=== PATIENT | female | born 1955 | race African-American/Black ===

== ENCOUNTER → 2020-07-05 | Outpatient (CLI) | payer OTHER ==
[~2020-07-05] MED LIST: ASPI81TA40 PO; BENZ1TAB10 PO; DILT60 PO; DIPH50 PO; DSS100 PO; FERR-89 PO; GLIP5 PO; INSLAN SQ; LISI-661 PO; LORA-999 PO; OMEP20 PO; PALI234D IM; SIMV-260 PO; TRAZ150 PO
== END | disposition home or self-care (01) ==
LOC: RADMN 09:30
PROVIDERS: ATTEND Psychiatry & Neurology Neurology
DX: M51.36 Other intervertebral disc degeneration, lumbar region (principal); M48.061 Spinal stenosis, lumbar region without neurogenic claudication
CPT/HCPCS: 72148

== ENCOUNTER 2021-12-01 18:08 | Inpatient (IN) | payer MEDICARE, OTHER ==
[~2021-12-01] VITALS: Ht 175.3 cm; Wt 105.0 kg
[~2021-12-01 18:08] MED LIST changes: -BENZ1TAB10 PO; +BENZ1TAB96 PO; -DILT60 PO; +DILT60TA4 PO; -LISI-661 PO; +LISI-893 PO; -TRAZ150 PO; +TRAZ150T80 PO
[2021-12-01] MEDS ORDERED: SODIUM CHLORIDE 0.9% 100 ML ONE (18:51)
[2021-12-01] MEDS ORDERED: IOHEXOL 350 MG/ML 100 ML VIAL ONE (18:52)
[2021-12-01 19:21] LABS: BASOPHILS % (AUTO) 1.1 % (0.0-2.0); EOSINOPHILS % (AUTO) 1.2 % (1.0-6.0); HEMATOCRIT 41.8 % (36-46); HEMOGLOBIN 13.6 g/dL (12.0-16.0); LYMPHOCYTES % (AUTO) 39.1 % (22.0-44.0); MEAN CORPUSCULAR HGB CONC 32.6 G/dL (31.0-37.0); MEAN CORPUSCULAR VOLUME 89 fL (80-100); MONOCYTES # (AUTO) 0.5 K/uL (0.1-1.0); MONOCYTES % (AUTO) 5.3 % (2.0-9.0); NEUTROPHILS # (AUTO) 5.4 K/uL (1.8-7.7); NEUTROPHILS % (AUTO) 53.3 % (40.0-70.0); PLATELET COUNT (AUTO) 156 K/uL (150-450); RED BLOOD CELL COUNT(AUTO) 4.71 MIL/uL (4.00-5.20); RED CELL DISTRIBUTION WIDTH 13.8 % (11.5-14.5)
[2021-12-01 19:24] LABS: CALCIUM, TOTAL 8.6 mg/dL (8.8-10.5); CREATININE 2.51 mg/dL (0.60-1.30); POTASSIUM 4.6 mmol/L (3.5-5.1)
[2021-12-01 19:29] LABS: ALBUMIN 3.2 g/dL (3.4-5.0); BILIRUBIN,TOTAL 0.3 mg/dL (0.1-1.0); TOTAL PROTEIN, SERUM 7.8 g/dL (6.4-8.2)
[2021-12-01] MEDS ORDERED: ACETAMINOPHEN 1000 MG/ISO-OSM 100 ML IV ONE (19:30)
[2021-12-01] MEDS ORDERED: NiCARDipine HCL 25 MG in DEXTROSE 5%-WATER 240 ML IV PRN (19:30)
[2021-12-01 20:16] LABS: COVID AG,FIA SOURCE NASAL SWAB
[2021-12-01 20:30] LABS: APPEARANCE,URINE CLEAR (CLEAR); BILIRUBIN,URINE NEGATIVE (NEGATIVE); GLUCOSE, URINE (UA) NEGATIVE (NEGATIVE); KETONES,URINE NEGATIVE (NEGATIVE); LEUKOCYTE ESTERASE ,URINE NEGATIVE (NEGATIVE); NITRATE,URINE NEGATIVE (NEGATIVE); OCCULT BLOOD,URINE SMALL (NEGATIVE); PROTEIN,URINE 300-600,SEE CONFIRM mg/dL (NEGATIVE); SPECIFIC GRAVITIY, URINE 1.019 (1.003-1.030); UROBILINOGEN,URINE <=1.0 mg/dL (<=1.0)
[2021-12-01 20:34] LABS: AMPHET/METH SCREEN,URINE NEGATIVE (NEGATIVE); BARBITURATE SCREEN, URINE NEGATIVE (NEGATIVE); BENZODIAZEPINES SCREEN,URINE NEGATIVE (NEGATIVE); CANNABINOID SCREEN,URINE NEGATIVE (NEGATIVE); COCAINE SCREEN,URINE NEGATIVE (NEGATIVE); METHADONE SCREEN, URINE NEGATIVE (NEGATIVE); OPIATE SCREEN,URINE POSITIVE (NEGATIVE)
[2021-12-01 20:35] LABS: PHENCYCLIDINE SCREEN,URINE NEGATIVE (NEGATIVE)
[2021-12-01 20:50] LABS: INFLUENZA TYPE A NEGATIVE FOR TYPE A (NEGATIVE); INFLUENZA TYPE B NEGATIVE FOR TYPE B (NEGATIVE)
[2021-12-01] MEDS ORDERED: VANCOMYCIN 1GM/WATER(PEG/NADA) 200 ML IV ONE (21:45)
[2021-12-01] MEDS ORDERED: CefTRIAXone SODIUM 2 GM in DEXTROSE 5%-WATER 50 ML IV ONE (22:00)
[2021-12-01] MEDS ORDERED: DEXTROSE 50%-WATER 25 GM/50 ML SYRINGE IVP PRN (22:15)
[2021-12-01] MEDS ORDERED: NiCARDipine HCL 25 MG in SODIUM CHLORIDE 0.9% 240 ML IV PRN (22:15)
[2021-12-01] MEDS ORDERED: *CLINICAL-CEFEPIME DOSING CLINICAL ONE (22:15)
[2021-12-01 22:33] LABS: BACTERIA,URINE None Seen /HPF (None Seen); RBC,URINE 0-2 /HPF (0-2); SQUAMOUS EPITHELIAL CELL,UR Rare /LPF (None Seen); WBC,URINE None Seen /HPF (0-5); YEAST,URINE None Seen /HPF (None Seen)
[2021-12-01 22:34] LABS: MUCUS,URINE Rare LPF (None Seen)
[2021-12-01] MEDS ORDERED: NALOXONE HCL 10 MG in DEXTROSE 5%-WATER 240 ML IV PRN (22:45)
[2021-12-01] MEDS ORDERED: SODIUM CHLORIDE 0.9% 1,500 ML IV ONE (22:45)
[2021-12-01] MEDS ORDERED: VANCOMYCIN HCL 1 GM in DEXTROSE 5%-WATER 250 ML IV PRN (22:45)
[2021-12-01 23:15] LABS: SULFOSALICYLIC ACID,URINE 4+ (Negative)
[2021-12-02 00:10] LABS: CREATININE 2.6 mg/dL (0.60-1.30); POTASSIUM 5.3 mmol/L (3.5-5.1)
[2021-12-02] MEDS: SODIUM CHLORIDE 0.9% 1,000 ML IV SCH ×2 (00:39→15:00)
[2021-12-02] MEDS ORDERED: VANCOMYCIN 1GM/WATER(PEG/NADA) 200 ML IV ONE (02:00)
[2021-12-02 08:00] VITALS: BP 136/91
[2021-12-02] MEDS ORDERED: HALOPERIDOL LACTATE 5 MG/ML VIAL IM ONE ×2 (08:30→11:30)
[2021-12-02] MEDS ORDERED: ASPIRIN 81 MG DR TABLET PO SCH (09:00)
[2021-12-02] MEDS ORDERED: CEFEPIME HCL 1 GM in DEXTROSE 5%-WATER 50 ML IV SCH (09:00)
[2021-12-02] MEDS ORDERED: PALIPERIDONE PALMITATE 234 MG/1.5 ML SYRINGE IM SCH (09:00)
[2021-12-02] MEDS: ETHYL ALCOHOL 62% ANTISEPTIC NASAL INHALANT 0.6 ML AMPUL NASAL SCH ×2 (09:12→21:17)
[2021-12-02] MEDS: LORazepam 0.5 MG TABLET PO SCH ×2 (09:12→21:16)
[2021-12-02] MEDS: CEFEPIME HCL 0.5 GM in DEXTROSE 5%-WATER 50 ML IV SCH (09:12)
[2021-12-02] MEDS: DOCUSATE SODIUM 100 MG CAPSULE PO SCH (09:13)
[2021-12-02] MEDS: OMEPRAZOLE 20 MG CAPSULE PO SCH (09:13)
[2021-12-02] MEDS: BENZTROPINE MESYLATE 1 MG TABLET PO SCH ×2 (09:13→21:17)
[2021-12-02] MEDS: DILTIAZEM HCL 60 MG TABLET PO SCH ×2 (09:14→21:17)
[2021-12-02] MEDS ORDERED: DiphenhydrAMINE HCL 50 MG/ML VIAL IM ONE (11:30)
[2021-12-02] MEDS ORDERED: LORazepam 2 MG/ML VIAL IM ONE (11:30)
[2021-12-02] MEDS: FERROUS SULFATE 325 MG EC TABLET PO SCH ×3 (11:43→21:19)
[2021-12-02 12:00] VITALS: BP 154/132
[2021-12-02] MEDS ORDERED: DOCU-350 PO (13:14)
[2021-12-02] MEDS ORDERED: MORP15TA43 PO (13:14)
[2021-12-02] MEDS ORDERED: CLON0.1T2 PO (13:14)
[2021-12-02] MEDS ORDERED: POLY17PO47 PO (13:14)
[2021-12-02] MEDS ORDERED: PREG50 PO (13:14)
[2021-12-02] MEDS ORDERED: CYCL10TA17 PO (13:14)
[2021-12-02] MEDS ORDERED: INSU100V SQ ×2 (13:14)
[2021-12-02] MEDS ORDERED: SITA50 PO (13:14)
[2021-12-02] MEDS ORDERED: LIDO700A15 TP (13:14)
[2021-12-02] MEDS ORDERED: TRAZ150T80 PO (13:14)
[2021-12-02] MEDS ORDERED: OXYC-490 PO (13:14)
[2021-12-02] MEDS ORDERED: LISI-894 PO (13:14)
[2021-12-02] MEDS ORDERED: FOLI1TAB85 PO (13:14)
[2021-12-02] MEDS ORDERED: GABA-1181 PO (13:14)
[2021-12-02] MEDS ORDERED: DICL100G51 TP (13:14)
[2021-12-02] MEDS ORDERED: HALO1TAB19 PO (13:14)
[2021-12-02] MEDS ORDERED: INSLAN SQ (13:14)
[2021-12-02] MEDS ORDERED: ROPI1TAB46 PO (13:14)
[2021-12-02] MEDS ORDERED: SITA100 PO (13:20)
[2021-12-02 14:49] VITALS: BP 186/108
[2021-12-02 20:30] VITALS: BP 210/82
[2021-12-02] MEDS ORDERED: LABETALOL HCL 5 MG/ML 20 ML VIAL IVP ONE (20:45)
[2021-12-02] MEDS: INSULIN GLARGINE,HUM.REC.ANLOG 100 UNITS/ML SQ SCH (21:00)
[2021-12-02 21:11] LABS: GLUCOMETER DEV NAME(LOC) 5S.1B; GLUCOSE,POINT OF CARE 136 MG/DL (70-110)
[2021-12-02] MEDS: SIMVASTATIN 20 MG TABLET PO SCH (21:16)
[2021-12-02] MEDS: DiphenhydrAMINE HCL 50 MG CAPSULE PO SCH (21:17)
[2021-12-02] MEDS: TraZODone HCL 150 MG TABLET PO SCH (21:17)
[2021-12-02] MEDS ORDERED: DILTIAZEM HCL 60 MG SR CAPSULE PO SCH (21:19)
[2021-12-02] MEDS: LABETALOL HCL 100 MG TABLET PO SCH (21:22)
[2021-12-02 21:26] LABS: GLUCOMETER DEV NAME(LOC) 5S.2B; GLUCOSE,POINT OF CARE 174 MG/DL (70-110)
[2021-12-02 23:33] VITALS: BP 185/106
[2021-12-03 04:45] VITALS: BP 197/96
[2021-12-03] MEDS ORDERED: LABETALOL HCL 5 MG/ML 20 ML VIAL IVP ONE (05:15)
[2021-12-03] MEDS: INSULIN LISPRO 100 UNITS/ML SQ PRN ×2 (05:39→21:57)
[2021-12-03 05:51] LABS: GLUCOMETER DEV NAME(LOC) 5S.1B; GLUCOSE,POINT OF CARE 208 MG/DL (70-110)
[2021-12-03 06:55] LABS: CALCIUM, TOTAL 8.8 mg/dL (8.8-10.5); CREATININE 2.32 mg/dL (0.60-1.30); POTASSIUM 3.9 mmol/L (3.5-5.1)
[2021-12-03 08:16] VITALS: BP 153/108
[2021-12-03] MEDS: DILTIAZEM HCL 60 MG SR CAPSULE PO SCH ×2 (08:26→21:52)
[2021-12-03] MEDS: DOCUSATE SODIUM 100 MG CAPSULE PO SCH (08:26)
[2021-12-03] MEDS: OMEPRAZOLE 20 MG CAPSULE PO SCH (08:27)
[2021-12-03] MEDS: LABETALOL HCL 100 MG TABLET PO SCH ×2 (08:27→21:51)
[2021-12-03] MEDS: ETHYL ALCOHOL 62% ANTISEPTIC NASAL INHALANT 0.6 ML AMPUL NASAL SCH ×2 (08:27→21:51)
[2021-12-03] MEDS: FERROUS SULFATE 325 MG EC TABLET PO SCH ×4 (08:27→21:51)
[2021-12-03] MEDS: BENZTROPINE MESYLATE 1 MG TABLET PO SCH ×2 (08:27→21:52)
[2021-12-03] MEDS: SODIUM CHLORIDE 0.9% 1,000 ML IV SCH ×3 (08:30→21:50)
[2021-12-03] MEDS: CEFEPIME HCL 0.5 GM in DEXTROSE 5%-WATER 50 ML IV SCH (08:34)
[2021-12-03] MEDS: LORazepam 0.5 MG TABLET PO SCH ×2 (08:36→21:51)
[2021-12-03] MEDS: ONDANSETRON HCL 4 MG/2 ML VIAL IVP PRN ×2 (09:52→22:01)
[2021-12-03 11:34] VITALS: BP 204/91
[2021-12-03 11:46] VITALS: BP 154/58
[2021-12-03 13:11] LABS: GLUCOMETER DEV NAME(LOC) 5S.1B; GLUCOSE,POINT OF CARE 253 MG/DL (70-110)
[2021-12-03 16:00] VITALS: BP 155/98
[2021-12-03] MEDS ORDERED: ONDANSETRON HCL 4 MG/2 ML VIAL IVP ONE (16:00)
[2021-12-03] MEDS ORDERED: BARIUM SULFATE 0.1% SUSPENSION 450 ML BOTTLE ONE (16:13)
[2021-12-03 20:28] VITALS: BP 227/99
[2021-12-03] MEDS: TraZODone HCL 150 MG TABLET PO SCH (21:51)
[2021-12-03] MEDS: DiphenhydrAMINE HCL 50 MG CAPSULE PO SCH (21:51)
[2021-12-03] MEDS: SIMVASTATIN 20 MG TABLET PO SCH (21:52)
[2021-12-03] MEDS: INSULIN GLARGINE,HUM.REC.ANLOG 100 UNITS/ML SQ SCH (21:54)
[2021-12-04] VITALS (7 sets, daily range): BP systolic 155–211; BP diastolic 84–113
[2021-12-04 01:21] LABS: GLUCOMETER DEV NAME(LOC) 5S.2B; GLUCOSE,POINT OF CARE 276 MG/DL (70-110)
[2021-12-04] MEDS: HydrALAZINE HCL 20 MG/ML VIAL IVP PRN ×2 (05:15→13:31)
[2021-12-04] MEDS: ACETAMINOPHEN 325 MG TABLET PO PRN ×2 (05:15→20:44)
[2021-12-04] MEDS: ONDANSETRON HCL 4 MG/2 ML VIAL IVP PRN ×2 (05:15→13:32)
[2021-12-04] MEDS: INSULIN LISPRO 100 UNITS/ML SQ PRN ×4 (05:25→20:12)
[2021-12-04] MEDS: SODIUM CHLORIDE 0.9% 1,000 ML IV SCH ×2 (05:26→16:21)
[2021-12-04 05:54] LABS: CALCIUM, TOTAL 8.6 mg/dL (8.8-10.5); CREATININE 2.32 mg/dL (0.60-1.30); POTASSIUM 3.8 mmol/L (3.5-5.1)
[2021-12-04 06:08] LABS: VANCOMYCIN,RANDOM 4.7 mcg/mL (25.0-50.0)
[2021-12-04 06:35] LABS: GLUCOMETER DEV NAME(LOC) 5S.2B; GLUCOSE,POINT OF CARE 280 MG/DL (70-110)
[2021-12-04] MEDS ORDERED: VANCOMYCIN HCL 1 GM in DEXTROSE 5%-WATER 250 ML IV ONE (08:15)
[2021-12-04] MEDS: DOCUSATE SODIUM 100 MG CAPSULE PO SCH (08:33)
[2021-12-04] MEDS: LABETALOL HCL 100 MG TABLET PO SCH ×2 (08:33→20:10)
[2021-12-04] MEDS: ETHYL ALCOHOL 62% ANTISEPTIC NASAL INHALANT 0.6 ML AMPUL NASAL SCH ×2 (08:34→20:10)
[2021-12-04] MEDS: OMEPRAZOLE 20 MG CAPSULE PO SCH (08:34)
[2021-12-04] MEDS: LORazepam 0.5 MG TABLET PO SCH ×2 (08:35→20:10)
[2021-12-04] MEDS: BENZTROPINE MESYLATE 1 MG TABLET PO SCH ×2 (08:35→20:10)
[2021-12-04] MEDS: FERROUS SULFATE 325 MG EC TABLET PO SCH ×4 (08:35→20:10)
[2021-12-04] MEDS: DILTIAZEM HCL 60 MG SR CAPSULE PO SCH ×2 (08:35→20:10)
[2021-12-04 12:21] LABS: GLUCOMETER DEV NAME(LOC) 5S.2B; GLUCOSE,POINT OF CARE 278 MG/DL (70-110)
[2021-12-04] MEDS: METOCLOPRAMIDE HCL 5 MG TABLET PO SCH ×2 (15:26→20:10)
[2021-12-04] MEDS: CEFEPIME HCL 0.5 GM in DEXTROSE 5%-WATER 50 ML IV SCH (15:26)
[2021-12-04] MEDS: PANTOPRAZOLE SODIUM 40 MG DR TABLET PO SCH (17:43)
[2021-12-04 18:16] LABS: GLUCOMETER DEV NAME(LOC) 5S.1B; GLUCOSE,POINT OF CARE 331 MG/DL (70-110)
[2021-12-04] MEDS: SIMVASTATIN 20 MG TABLET PO SCH (20:10)
[2021-12-04] MEDS: TraZODone HCL 150 MG TABLET PO SCH (20:10)
[2021-12-04] MEDS: DiphenhydrAMINE HCL 50 MG CAPSULE PO SCH (20:10)
[2021-12-04] MEDS: INSULIN GLARGINE,HUM.REC.ANLOG 100 UNITS/ML SQ SCH (20:11)
[2021-12-05] MEDS: SODIUM CHLORIDE 0.9% 1,000 ML IV SCH ×2 (03:22→13:02)
[2021-12-05] MEDS: ACETAMINOPHEN 325 MG TABLET PO PRN ×3 (05:31→17:49)
[2021-12-05] MEDS: PANTOPRAZOLE SODIUM 40 MG DR TABLET PO SCH ×2 (05:31→17:48)
[2021-12-05] MEDS: INSULIN LISPRO 100 UNITS/ML SQ PRN ×4 (05:33→20:35)
[2021-12-05 06:41] LABS: GLUCOMETER DEV NAME(LOC) 5S.2B; GLUCOSE,POINT OF CARE 254 MG/DL (70-110)
[2021-12-05] MEDS ORDERED: VANCOMYCIN HCL 1 GM in DEXTROSE 5%-WATER 250 ML IV SCH (08:00)
[2021-12-05] MEDS: DILTIAZEM HCL 60 MG SR CAPSULE PO SCH ×2 (09:04→20:36)
[2021-12-05] MEDS: ETHYL ALCOHOL 62% ANTISEPTIC NASAL INHALANT 0.6 ML AMPUL NASAL SCH ×2 (09:04→20:35)
[2021-12-05] MEDS: LORazepam 0.5 MG TABLET PO SCH ×2 (09:04→20:36)
[2021-12-05] MEDS: BENZTROPINE MESYLATE 1 MG TABLET PO SCH ×2 (09:04→20:36)
[2021-12-05] MEDS: FERROUS SULFATE 325 MG EC TABLET PO SCH ×4 (09:04→20:35)
[2021-12-05] MEDS: DOCUSATE SODIUM 100 MG CAPSULE PO SCH (09:04)
[2021-12-05] MEDS: METOCLOPRAMIDE HCL 5 MG TABLET PO SCH ×3 (09:05→20:36)
[2021-12-05] MEDS: LABETALOL HCL 100 MG TABLET PO SCH ×2 (09:05→20:36)
[2021-12-05 09:08] LABS: CALCIUM, TOTAL 8.3 mg/dL (8.8-10.5); CREATININE 2.65 mg/dL (0.60-1.30); POTASSIUM 3.4 mmol/L (3.5-5.1)
[2021-12-05 11:43] VITALS: BP 160/87
[2021-12-05 11:51] LABS: GLUCOMETER DEV NAME(LOC) 5S.2B; GLUCOSE,POINT OF CARE 273 MG/DL (70-110)
[2021-12-05] MEDS: ONDANSETRON HCL 4 MG/2 ML VIAL IVP PRN (12:55)
[2021-12-05] MEDS ORDERED: POTASSIUM CHLORIDE 10% 40 MEQ/30 ML LIQUID UDCUP PO ONE (14:30)
[2021-12-05] MEDS ORDERED: SODIUM CHLORIDE 0.9% 1,000 ML IV ONE (14:30)
[2021-12-05] MEDS: CEFEPIME HCL 0.5 GM in DEXTROSE 5%-WATER 50 ML IV SCH (15:41)
[2021-12-05 16:02] VITALS: BP 154/80
[2021-12-05 19:55] VITALS: BP 197/92
[2021-12-05] MEDS: TraZODone HCL 150 MG TABLET PO SCH (20:36)
[2021-12-05] MEDS: SIMVASTATIN 20 MG TABLET PO SCH (20:36)
[2021-12-05] MEDS: DiphenhydrAMINE HCL 50 MG CAPSULE PO SCH (20:36)
[2021-12-05] MEDS: INSULIN GLARGINE,HUM.REC.ANLOG 100 UNITS/ML SQ SCH (20:39)
[2021-12-06] VITALS: BP 185/89
[2021-12-06] MEDS: HydrALAZINE HCL 20 MG/ML VIAL IVP PRN ×4 (00:06→23:44)
[2021-12-06] MEDS: SODIUM CHLORIDE 0.9% 1,000 ML IV SCH ×3 (03:28→23:38)
[2021-12-06 05:00] VITALS: BP 196/85
[2021-12-06] MEDS: PANTOPRAZOLE SODIUM 40 MG DR TABLET PO SCH ×2 (05:54→18:15)
[2021-12-06] MEDS: INSULIN LISPRO 100 UNITS/ML SQ PRN ×4 (05:56→20:11)
[2021-12-06] MEDS: FERROUS SULFATE 325 MG EC TABLET PO SCH ×4 (07:50→20:07)
[2021-12-06] MEDS: DILTIAZEM HCL 60 MG SR CAPSULE PO SCH ×2 (07:51→20:06)
[2021-12-06] MEDS: LABETALOL HCL 100 MG TABLET PO SCH ×2 (07:52→20:05)
[2021-12-06] MEDS: METOCLOPRAMIDE HCL 5 MG TABLET PO SCH ×3 (07:52→20:06)
[2021-12-06] MEDS: LORazepam 0.5 MG TABLET PO SCH ×2 (07:52→20:06)
[2021-12-06] MEDS: BENZTROPINE MESYLATE 1 MG TABLET PO SCH ×2 (07:53→20:06)
[2021-12-06] MEDS: DOCUSATE SODIUM 100 MG CAPSULE PO SCH (07:53)
[2021-12-06] MEDS: ETHYL ALCOHOL 62% ANTISEPTIC NASAL INHALANT 0.6 ML AMPUL NASAL SCH ×2 (07:59→20:05)
[2021-12-06 10:52] VITALS: BP 178/85
[2021-12-06] MEDS: ACETAMINOPHEN 325 MG TABLET PO PRN ×2 (11:26→18:15)
[2021-12-06] MEDS ORDERED: HydrALAZINE HCL 25 MG TABLET PO ONE (14:15)
[2021-12-06 14:41] LABS: CALCIUM, TOTAL 8.7 mg/dL (8.8-10.5); CREATININE 2.44 mg/dL (0.60-1.30); POTASSIUM 3.5 mmol/L (3.5-5.1)
[2021-12-06 14:56] VITALS: BP 177/72
[2021-12-06] MEDS ORDERED: CEFEPIME HCL 1 GM in DEXTROSE 5%-WATER 50 ML IV SCH (16:00)
[2021-12-06 16:20] LABS: COVID AG,FIA SOURCE NASOPHARYNGEAL
[2021-12-06 19:28] VITALS: BP 150/115
[2021-12-06] MEDS: DiphenhydrAMINE HCL 50 MG CAPSULE PO SCH (20:05)
[2021-12-06] MEDS: TraZODone HCL 150 MG TABLET PO SCH (20:06)
[2021-12-06] MEDS: SIMVASTATIN 20 MG TABLET PO SCH (20:07)
[2021-12-06] MEDS: INSULIN GLARGINE,HUM.REC.ANLOG 100 UNITS/ML SQ SCH (20:10)
[2021-12-06] MEDS: ONDANSETRON HCL 4 MG/2 ML VIAL IVP PRN (20:20)
[2021-12-06 23:52] VITALS: BP 183/78
[2021-12-07 04:08] VITALS: BP 181/81
[2021-12-07] MEDS: ACETAMINOPHEN 325 MG TABLET PO PRN ×2 (04:59→11:40)
[2021-12-07 05:01] LABS: GLUCOMETER DEV NAME(LOC) 5S.2B; GLUCOSE,POINT OF CARE 234 MG/DL (70-110)
[2021-12-07 05:01] LABS: GLUCOMETER DEV NAME(LOC) 5S.2B; GLUCOSE,POINT OF CARE 234 MG/DL (70-110)
[2021-12-07 05:01] LABS: GLUCOMETER DEV NAME(LOC) 5S.1B; GLUCOSE,POINT OF CARE 244 MG/DL (70-110)
[2021-12-07 05:01] LABS: GLUCOMETER DEV NAME(LOC) 5S.1B; GLUCOSE,POINT OF CARE 264 MG/DL (70-110)
[2021-12-07 05:01] LABS: GLUCOMETER DEV NAME(LOC) 5S.1B; GLUCOSE,POINT OF CARE 214 MG/DL (70-110)
[2021-12-07 05:01] LABS: GLUCOMETER DEV NAME(LOC) 5S.1B; GLUCOSE,POINT OF CARE 256 MG/DL (70-110)
[2021-12-07] MEDS: PANTOPRAZOLE SODIUM 40 MG DR TABLET PO SCH ×3 (05:32→16:39)
[2021-12-07] MEDS: INSULIN LISPRO 100 UNITS/ML SQ PRN ×4 (05:33→20:16)
[2021-12-07] MEDS: HydrALAZINE HCL 20 MG/ML VIAL IVP PRN (06:37)
[2021-12-07] MEDS: ETHYL ALCOHOL 62% ANTISEPTIC NASAL INHALANT 0.6 ML AMPUL NASAL SCH ×2 (08:22→20:17)
[2021-12-07 08:25] VITALS: BP 158/77
[2021-12-07] MEDS: DILTIAZEM HCL 60 MG SR CAPSULE PO SCH ×2 (09:33→20:18)
[2021-12-07] MEDS: BENZTROPINE MESYLATE 1 MG TABLET PO SCH ×2 (09:33→20:18)
[2021-12-07] MEDS: DOCUSATE SODIUM 100 MG CAPSULE PO SCH (09:33)
[2021-12-07] MEDS: LORazepam 0.5 MG TABLET PO SCH ×2 (09:33→20:18)
[2021-12-07] MEDS: METOCLOPRAMIDE HCL 5 MG TABLET PO SCH ×3 (09:33→20:18)
[2021-12-07] MEDS: FERROUS SULFATE 325 MG EC TABLET PO SCH ×4 (09:33→20:18)
[2021-12-07] MEDS: LABETALOL HCL 100 MG TABLET PO SCH ×2 (09:34→20:18)
[2021-12-07] MEDS: SODIUM CHLORIDE 0.9% 1,000 ML IV SCH ×2 (09:34→20:19)
[2021-12-07 10:14] LABS: CALCIUM, TOTAL 8.4 mg/dL (8.8-10.5); CREATININE 2.37 mg/dL (0.60-1.30); POTASSIUM 3.4 mmol/L (3.5-5.1)
[2021-12-07 11:44] VITALS: BP 171/76
[2021-12-07 12:02] LABS: GLUCOMETER DEV NAME(LOC) 5S.2B; GLUCOSE,POINT OF CARE 236 MG/DL (70-110)
[2021-12-07 12:02] LABS: GLUCOMETER DEV NAME(LOC) 5S.1B; GLUCOSE,POINT OF CARE 215 MG/DL (70-110)
[2021-12-07] MEDS: HydrALAZINE HCL 25 MG TABLET PO SCH ×2 (12:35→20:17)
[2021-12-07] MEDS: ONDANSETRON HCL 4 MG/2 ML VIAL IVP PRN (12:47)
[2021-12-07 15:45] VITALS: BP 156/84
[2021-12-07] MEDS ORDERED: LOPERAMIDE HCL 2 MG CAPSULE PO ONE (15:45)
[2021-12-07] MEDS: CEFEPIME HCL 2 GM in DEXTROSE 5%-WATER 50 ML IV SCH (15:56)
[2021-12-07 18:21] LABS: GLUCOMETER DEV NAME(LOC) 5S.1B; GLUCOSE,POINT OF CARE 203 MG/DL (70-110)
[2021-12-07 19:41] VITALS: BP 154/81
[2021-12-07] MEDS: SIMVASTATIN 20 MG TABLET PO SCH (20:17)
[2021-12-07] MEDS: INSULIN GLARGINE,HUM.REC.ANLOG 100 UNITS/ML SQ SCH (20:17)
[2021-12-07] MEDS: TraZODone HCL 150 MG TABLET PO SCH (20:18)
[2021-12-07] MEDS: DiphenhydrAMINE HCL 50 MG CAPSULE PO SCH (20:18)
[2021-12-07 23:20] LABS: GLUCOMETER DEV NAME(LOC) 5S.2B; GLUCOSE,POINT OF CARE 222 MG/DL (70-110)
[2021-12-08 03:55] VITALS: BP 190/87
[2021-12-08] MEDS: HydrALAZINE HCL 20 MG/ML VIAL IVP PRN (04:00)
[2021-12-08 05:30] VITALS: BP 147/85
[2021-12-08] MEDS: INSULIN LISPRO 100 UNITS/ML SQ PRN ×3 (05:54→18:14)
[2021-12-08] MEDS: SODIUM CHLORIDE 0.9% 1,000 ML IV SCH ×2 (05:56→16:21)
[2021-12-08 06:26] LABS: GLUCOMETER DEV NAME(LOC) 5S.2B; GLUCOSE,POINT OF CARE 209 MG/DL (70-110)
[2021-12-08] MEDS: PANTOPRAZOLE SODIUM 40 MG DR TABLET PO SCH ×2 (06:58→16:21)
[2021-12-08 07:22] VITALS: BP 144/78
[2021-12-08] MEDS: HydrALAZINE HCL 25 MG TABLET PO SCH (08:32)
[2021-12-08] MEDS: FERROUS SULFATE 325 MG EC TABLET PO SCH ×3 (08:32→18:13)
[2021-12-08] MEDS: LABETALOL HCL 100 MG TABLET PO SCH (08:33)
[2021-12-08] MEDS: BENZTROPINE MESYLATE 1 MG TABLET PO SCH (08:33)
[2021-12-08] MEDS: LORazepam 0.5 MG TABLET PO SCH (08:33)
[2021-12-08] MEDS: METOCLOPRAMIDE HCL 5 MG TABLET PO SCH ×2 (08:33→16:21)
[2021-12-08] MEDS: ETHYL ALCOHOL 62% ANTISEPTIC NASAL INHALANT 0.6 ML AMPUL NASAL SCH (08:40)
[2021-12-08] MEDS: DILTIAZEM HCL 60 MG SR CAPSULE PO SCH (08:40)
[2021-12-08 10:07] LABS: CALCIUM, TOTAL 8.1 mg/dL (8.8-10.5); CREATININE 2.43 mg/dL (0.60-1.30); POTASSIUM 3.2 mmol/L (3.5-5.1)
[2021-12-08 11:00] VITALS: BP 128/83
[2021-12-08 12:31] LABS: GLUCOMETER DEV NAME(LOC) 5S.1B; GLUCOSE,POINT OF CARE 195 MG/DL (70-110)
[2021-12-08 15:16] VITALS: BP 158/82
[2021-12-08] MEDS: CEFEPIME HCL 2 GM in DEXTROSE 5%-WATER 50 ML IV SCH (16:21)
[2021-12-08 17:56] LABS: COVID AG,FIA SOURCE NASAL SWAB
[2021-12-08] MEDS: ACETAMINOPHEN 325 MG TABLET PO PRN (18:17)
[2021-12-08 18:22] LABS: GLUCOMETER DEV NAME(LOC) 5S.1B; GLUCOSE,POINT OF CARE 223 MG/DL (70-110)
[2021-12-08] MEDS ORDERED: TRAZ150T80 PO (18:29)
[2021-12-08] MEDS ORDERED: BENZ1TAB96 PO (18:30)
[2021-12-08] MEDS ORDERED: DILT60TA4 PO (18:31)
[2021-12-08] MEDS ORDERED: DIPH25TA20 PO (18:32)
[2021-12-08] MEDS ORDERED: ETHY1MED NASAL (18:33)
[2021-12-08] MEDS ORDERED: FERR-89 PO (18:34)
[2021-12-08] MEDS ORDERED: INSLAN SQ (18:34)
[2021-12-08] MEDS ORDERED: LORA-999 PO (18:35)
[2021-12-08] MEDS ORDERED: LABE100T51 PO (18:35)
[2021-12-08] MEDS ORDERED: METO5TAB95 PO (18:35)
[2021-12-08] MEDS ORDERED: PANT-31 PO (18:36)
[2021-12-08] MEDS ORDERED: SIMV-260 PO (18:36)
[2021-12-08] MEDS ORDERED: INSU100V SQ (18:37)
[2021-12-08] MEDS ORDERED: HYDR25TA84 PO (18:48)
== END 2021-12-08 20:15 | DRG 304 ==
LOC: EMS 18:08 → ICU 21:49 → 5S 12-02 12:25
PROVIDERS: ADMIT Internal Medicine; ATTEND Internal Medicine
PROC: 05HY33Z Insertion of Infusion Device into Upper Vein, Percutaneous Approach (ICD-10-PCS; principal; 2021-12-04)
DX: I16.0 Hypertensive urgency (principal); G92.9 Unspecified toxic encephalopathy; N17.0 Acute kidney failure with tubular necrosis; I62.9 Nontraumatic intracranial hemorrhage, unspecified; F20.9 Schizophrenia, unspecified; Z20.822 Contact with and (suspected) exposure to COVID-19; K21.9 Gastro-esophageal reflux disease without esophagitis; M18.30 Unilateral post-traumatic osteoarthritis of first carpometacarpal joint, unspecified hand; E11.22 Type 2 diabetes mellitus with diabetic chronic kidney disease; I12.9 Hypertensive chronic kidney disease with stage 1 through stage 4 chronic kidney disease, or unspecified chronic kidney disease; E66.01 Morbid (severe) obesity due to excess calories; I25.2 Old myocardial infarction; Z86.73 Personal history of transient ischemic attack (TIA), and cerebral infarction without residual deficits; Z88.0 Allergy status to penicillin; Z88.6 Allergy status to analgesic agent; Z88.8 Allergy status to other drugs, medicaments and biological substances; Z90.49 Acquired absence of other specified parts of digestive tract; Z68.34 Body mass index [BMI] 34.0-34.9, adult
CPT/HCPCS: 36245; 36569; 51702; 70496; 70498; 70551; 71045; 71250; 72192; 74150; 74176; 76937; 80048; 80053; 80202; 81001; 81002; 82550; 82948; 82962; 83605; 83690; 83880; 84484; 85025; 85610; 85730; 86850; 86900; 86901; 87081; 87804; 92526; 92610; 93005; 99291; G0378; J0131; J0360; J0692; J0696; J1200; J1630; J1815; J2060; J2405; J3370; J3490; J7030; J7050; J7060; Q9967; 36415-L1; 36415-TC; 70450; 70450-TC

== ENCOUNTER 2023-12-07 19:29 | Emergency (ER) | payer MEDICARE, MEDICAID ==
[~2023-12-07] VITALS: Ht 182.9 cm; Wt 80.5 kg
[~2023-12-07 19:29] MED LIST changes: -ASPI81TA40 PO; +BENZ1TAB84 PO; -BENZ1TAB96 PO; +CYCL-448 PO; +DICL100G60 TP; +DIPH25TA20 PO; -DIPH50 PO; -DSS100 PO; +ETHY1MED2 NASAL; -FERR-89 PO; +FERR325T27 PO; +FOLI1TAB85 PO; +GABA-1181 PO; -GLIP5 PO; +HYDR25TA84 PO; +INSU100V SQ; +LABE100T51 PO; -LISI-893 PO; +METO5TAB95 PO; -OMEP20 PO; -PALI234D IM; +PANT-31 PO; +POLY17PO47 PO; +PREG50 PO; +ROPI1TAB46 PO; +SITA100 PO
[2023-12-07 19:59] LABS: BASOPHILS % (AUTO) 1.1 % (0.0-2.0); EOSINOPHILS % (AUTO) 2.1 % (1.0-6.0); HEMATOCRIT 33.2 % (36-46); HEMOGLOBIN 11.2 g/dL (12.0-16.0); LYMPHOCYTES # (AUTO) 4.8 K/uL (1.0-4.8); LYMPHOCYTES % (AUTO) 48.6 % (22.0-44.0); MEAN CORPUSCULAR HEMOGLOBIN 29.9 pg (26.0-34.0); MEAN CORPUSCULAR HGB CONC 33.6 G/dL (31.0-37.0); MEAN CORPUSCULAR VOLUME 89 fL (80-100); MONOCYTES # (AUTO) 0.8 K/uL (0.1-1.0); MONOCYTES % (AUTO) 7.7 % (2.0-9.0); NEUTROPHILS % (AUTO) 40.5 % (40.0-70.0); PLATELET COUNT (AUTO) 186 K/uL (150-450); RED BLOOD CELL COUNT(AUTO) 3.73 MIL/uL (4.00-5.20); RED CELL DISTRIBUTION WIDTH 14.2 % (11.5-14.5); WHITE BLOOD COUNT (AUTO) 9.9 K/uL (4.5-11.0)
[2023-12-07 20:07] LABS: ANION GAP 15 mmol/L (8-16); CARBON DIOXIDE 22 mmol/L (22-29); CHLORIDE 102 mmol/L (98-107); CREATININE 3.19 mg/dL (0.60-1.30); GLUCOSE,RANDOM 181 mg/dL (70-110); POTASSIUM 3.8 mmol/L (3.5-5.1); SODIUM SERUM 139 mmol/L (136-145); UREA NITROGEN, BLOOD 40 mg/dL (7-18)
[2023-12-07 20:08] LABS: GLOMERULAR FILTR. RATE CALC 17 mL/min (>60)
[2023-12-07 20:14] LABS: ALCOHOL, BLOOD (SERUM) < 3 mg/dL (0-10)
[2023-12-07 20:15] LABS: ALANINE AMINOTRANSFERASE 43 U/L (12-78); ALBUMIN 3.5 g/dL (3.4-5.0); ALKALINE PHOSPHATASE 140 U/L (46-116); ASPARTATE AMINOTRANSFERASE 26 U/L (15-37); BILIRUBIN,TOTAL 0.2 mg/dL (0.1-1.0); TOTAL PROTEIN, SERUM 7.4 g/dL (6.4-8.2)
[2023-12-07 21:05] VITALS: BP 130/63; PULSE 86; RESP 18; TEMP 97.7
[2023-12-07 21:16] LABS: GLUCOMETER DEV NAME(LOC) ERT.5; GLUCOSE,POINT OF CARE 185 MG/DL (70-110)
[2023-12-07] MEDS: QUEtiapine FUMARATE 100 MG TABLET PO ONE (21:23)
[2023-12-07] MEDS: ACETAMINOPHEN 500 MG TABLET PO ONE (21:43)
== END 2023-12-07 22:55 | disposition home or self-care (01) ==
LOC: EMS 19:29
DX: R44.1 Visual hallucinations (principal); E11.9 Type 2 diabetes mellitus without complications; I10 Essential (primary) hypertension; G21.0 Malignant neuroleptic syndrome; Z90.49 Acquired absence of other specified parts of digestive tract; Z88.0 Allergy status to penicillin; Z88.5 Allergy status to narcotic agent; Z98.890 Other specified postprocedural states
CPT/HCPCS: 99283; 80053; 82962; 85025; 36415; G0480

== ENCOUNTER 2023-12-20 11:43 | Emergency (ER) | payer MEDICARE, MEDICAID ==
[~2023-12-20] VITALS: Ht 180.3 cm; Wt 73.6 kg
[~2023-12-20 11:43] MED LIST changes: -DIPH25TA20 PO; -ETHY1MED2 NASAL; -FERR325T27 PO; -FOLI1TAB85 PO; -INSU100V SQ; -LORA-999 PO; -METO5TAB95 PO; -PANT-31 PO; -POLY17PO47 PO; +RISP-31 PO; -TRAZ150T80 PO
[2023-12-20 12:14] VITALS: BP 173/89; PULSE 89; RESP 16; TEMP 98.1
[2023-12-20] MEDS: ACETAMINOPHEN 325 MG TABLET PO ONE (12:31)
[2023-12-20] MEDS: KETOROLAC TROMETHAMINE 30 MG/ML VIAL IM ONE (12:31)
[2023-12-20 12:59] LABS: BASOPHILS % (AUTO) 0.9 % (0.0-2.0); EOSINOPHILS % (AUTO) 1.5 % (1.0-6.0); HEMATOCRIT 34.8 % (36-46); HEMOGLOBIN 11.2 g/dL (12.0-16.0); LYMPHOCYTES # (AUTO) 4.9 K/uL (1.0-4.8); LYMPHOCYTES % (AUTO) 36.4 % (22.0-44.0); MEAN CORPUSCULAR HEMOGLOBIN 29.4 pg (26.0-34.0); MEAN CORPUSCULAR HGB CONC 32.3 G/dL (31.0-37.0); MEAN CORPUSCULAR VOLUME 91 fL (80-100); MONOCYTES # (AUTO) 0.8 K/uL (0.1-1.0); NEUTROPHILS # (AUTO) 7.4 K/uL (1.8-7.7); NEUTROPHILS % (AUTO) 55.2 % (40.0-70.0); PLATELET COUNT (AUTO) 221 K/uL (150-450); RED BLOOD CELL COUNT(AUTO) 3.82 MIL/uL (4.00-5.20); RED CELL DISTRIBUTION WIDTH 14.3 % (11.5-14.5); WHITE BLOOD COUNT (AUTO) 13.5 K/uL (4.5-11.0)
[2023-12-20 13:08] LABS: ANION GAP 18 mmol/L (8-16); CALCIUM, TOTAL 6.2 mg/dL (8.8-10.5); CARBON DIOXIDE 17 mmol/L (22-29); CHLORIDE 109 mmol/L (98-107); CREATININE 2.63 mg/dL (0.60-1.30); GLOMERULAR FILTR. RATE CALC 22 mL/min (>60); GLUCOSE,RANDOM 136 mg/dL (70-110); POTASSIUM 3.3 mmol/L (3.5-5.1); SODIUM SERUM 144 mmol/L (136-145); UREA NITROGEN, BLOOD 28 mg/dL (7-18)
[2023-12-20 13:14] LABS: ALANINE AMINOTRANSFERASE 50 U/L (12-78); ALBUMIN 3.3 g/dL (3.4-5.0); ALKALINE PHOSPHATASE 127 U/L (46-116); ASPARTATE AMINOTRANSFERASE 39 U/L (15-37); BILIRUBIN,TOTAL 0.3 mg/dL (0.1-1.0); LIPASE 39 U/L (16-77)
[2023-12-20 13:18] LABS: ALCOHOL, BLOOD (SERUM) < 3 mg/dL (0-10)
[2023-12-20 13:39] LABS: TROPONIN I-HIGH SENSITIVITY 16 ng/L (<51)
[2023-12-20] MEDS ORDERED: HYDR50TA36 PO (14:25)
[2023-12-20] MEDS: LORazepam 2 MG TABLET PO ONE (14:46)
[2023-12-20] MEDS: RisperiDONE 1 MG TABLET PO ONE (14:46)
[2023-12-20 14:54] LABS: LACTIC ACID 0.8 mmol/L (0.4-2.0)
== END 2023-12-20 16:47 | disposition home or self-care (01) ==
LOC: EMS 11:43
DX: F25.9 Schizoaffective disorder, unspecified (principal); I12.9 Hypertensive chronic kidney disease with stage 1 through stage 4 chronic kidney disease, or unspecified chronic kidney disease; E11.22 Type 2 diabetes mellitus with diabetic chronic kidney disease; N18.9 Chronic kidney disease, unspecified; E87.6 Hypokalemia; E44.0 Moderate protein-calorie malnutrition; M19.90 Unspecified osteoarthritis, unspecified site; F32.A Depression, unspecified; Z90.49 Acquired absence of other specified parts of digestive tract; Z88.6 Allergy status to analgesic agent; Z88.0 Allergy status to penicillin; Z91.040 Latex allergy status
CPT/HCPCS: 99284; 80053; 83605; 83690; 84484; 85025; 36415; 96372; G0480; J1885

== ENCOUNTER 2023-12-31 10:15 | Inpatient (IN) | payer MEDICARE, MEDICAID ==
[~2023-12-31] VITALS: Ht 180.3 cm; Wt 79.6 kg
[~2023-12-31 10:15] MED LIST changes: -DICL100G60 TP; +DILT60TA3 PO; -DILT60TA4 PO; -HYDR25TA84 PO; +HYDR50TA36 PO; +LORA2I IM
[2023-12-31] MEDS ORDERED: NIFE-129 PO (13:05)
[2023-12-31] MEDS ORDERED: SODI650T33 PO (13:07)
[2023-12-31] MEDS ORDERED: PALI234D IM (13:07)
[2023-12-31] MEDS ORDERED: ACET-2247 PO (13:08)
[2023-12-31] MEDS ORDERED: CLON0.1T2 PO (13:09)
[2023-12-31] MEDS ORDERED: HALO5TAB23 PO (13:10)
[2023-12-31] MEDS ORDERED: INSU100V SQ (13:13)
[2023-12-31] MEDS ORDERED: LACT10SO10 PO (13:14)
[2023-12-31] MEDS ORDERED: LORA-1001 PO (13:15)
[2023-12-31 15:43] VITALS: BP 155/52; PULSE 114; RESP 17; TEMP 97.4
[2023-12-31] MEDS ORDERED: MAG HYDROX/ALUMINUM HYD/SIMETH ES 30 ML SUSPENSION UDCUP PO PRN (21:00)
[2023-12-31] MEDS ORDERED: OMEPRAZOLE 20 MG CAPSULE PO PRN (21:00)
[2023-12-31] MEDS ORDERED: ALBUTEROL SULFATE HFA 90 MCG/PUFF 8 GM INHALER IH PRN (21:00)
[2023-12-31] MEDS ORDERED: BENZOCAINE/MENTHOL LOZENGE PO PRN (21:00)
[2023-12-31] MEDS ORDERED: BACITRACIN 28 GM OINTMENT TP PRN (21:00)
[2023-12-31] MEDS ORDERED: PETROLATUM,WHITE 28 GM JELLY TP PRN (21:00)
[2023-12-31] MEDS ORDERED: ONDANSETRON HCL 4 MG TABLET PO PRN (21:00)
[2023-12-31] MEDS ORDERED: LOPERAMIDE HCL 2 MG CAPSULE PO PRN (21:00)
[2023-12-31] MEDS ORDERED: DOCUSATE SODIUM 100 MG CAPSULE PO PRN (21:00)
[2023-12-31 21:26] VITALS: BP 169/67; RESP 18; TEMP 97.5
[2023-12-31] MEDS: LORazepam 2 MG TABLET PO PRN (22:00)
[2023-12-31] MEDS: HALOPERIDOL 5 MG TABLET PO PRN (22:00)
[2024-01-01] MEDS ORDERED: DEXTROSE 50%-WATER 25 GM/50 ML SYRINGE IVP PRN (06:15)
[2024-01-01] MEDS ORDERED: INSULIN LISPRO 100 UNITS/ML SQ PRN (06:15)
[2024-01-01] MEDS: CloNIDine HCL 0.1 MG TABLET PO PRN (08:39)
[2024-01-01] MEDS: HydrALAZINE HCL 50 MG TABLET PO SCH (08:40)
[2024-01-01] MEDS: DILTIAZEM HCL 60 MG TABLET PO SCH (08:40)
[2024-01-01] MEDS: NICOTINE 21 MG/24 HOUR PATCH TD SCH (08:41)
[2024-01-01] MEDS: LABETALOL HCL 100 MG TABLET PO SCH (08:41)
[2024-01-01 08:45] VITALS: BP 180/86; PULSE 100; RESP 20; TEMP 97.6
[2024-01-01] MEDS: IBUPROFEN 600 MG TABLET PO PRN (08:45)
[2024-01-01 08:48] VITALS: BP 180/86; PULSE 100; RESP 18; TEMP 97.6
[2024-01-01 09:45] VITALS: BP 138/89; PULSE 81; RESP 19; TEMP 97
[2024-01-01 11:31] LABS: GLUCOMETER DEV NAME(LOC) 3E.C; GLUCOSE,POINT OF CARE 297 MG/DL (70-110)
[2024-01-01] MEDS: INSULIN LISPRO 100 UNITS/ML SQ PRN (12:09)
[2024-01-01 12:31] VITALS: BP 134/50; PULSE 90
[2024-01-01 16:51] LABS: GLUCOMETER DEV NAME(LOC) 3E.C; GLUCOSE,POINT OF CARE 176 MG/DL (70-110)
[2024-01-01 20:16] VITALS: BP 118/62; PULSE 73; RESP 18; TEMP 97.3
[2024-01-01] MEDS: SIMVASTATIN 20 MG TABLET PO SCH (20:50)
[2024-01-01] MEDS: ROPINIRole HCL 1 MG TABLET PO SCH (20:50)
[2024-01-01 20:55] LABS: GLUCOMETER DEV NAME(LOC) 3E.C; GLUCOSE,POINT OF CARE 209 MG/DL (70-110)
[2024-01-01] MEDS: INSULIN GLARGINE,HUM.REC.ANLOG 100 UNITS/ML SQ SCH (21:40)
[2024-01-02 06:40] LABS: GLUCOMETER DEV NAME(LOC) 3E.C; GLUCOSE,POINT OF CARE 169 MG/DL (70-110)
[2024-01-02 08:22] VITALS: BP 172/68; PULSE 72; RESP 17; TEMP 97.2
[2024-01-02] MEDS: ACETAMINOPHEN 325 MG TABLET PO PRN (08:22)
[2024-01-02 09:22] VITALS: BP 138/82; PULSE 78; RESP 18; TEMP 97.6
[2024-01-02 10:07] VITALS: BP 172/68; PULSE 79; RESP 17; TEMP 97.2
[2024-01-02 11:31] LABS: GLUCOMETER DEV NAME(LOC) 3E.C; GLUCOSE,POINT OF CARE 278 MG/DL (70-110)
[2024-01-02 16:44] VITALS: BP 142/87; PULSE 76; RESP 18; TEMP 98
[2024-01-02 17:44] VITALS: BP 138/81; PULSE 79; RESP 18; TEMP 97.9
[2024-01-02 20:10] LABS: GLUCOMETER DEV NAME(LOC) 3E.C; GLUCOSE,POINT OF CARE 188 MG/DL (70-110)
[2024-01-02 20:18] VITALS: BP 153/72; PULSE 90; RESP 18; TEMP 97.2
[2024-01-03 05:30] LABS: GLUCOMETER DEV NAME(LOC) 3E.C; GLUCOSE,POINT OF CARE 146 MG/DL (70-110)
[2024-01-03 08:05] VITALS: BP 190/72; PULSE 100; RESP 17; TEMP 97.2
[2024-01-03 09:34] VITALS: BP 169/62; PULSE 101; RESP 18; TEMP 97.5
[2024-01-03 12:01] LABS: GLUCOMETER DEV NAME(LOC) 3E.C; GLUCOSE,POINT OF CARE 184 MG/DL (70-110)
[2024-01-03 17:01] LABS: GLUCOMETER DEV NAME(LOC) 3E.C; GLUCOSE,POINT OF CARE 134 MG/DL (70-110)
[2024-01-03 20:01] VITALS: BP 153/69; PULSE 83; RESP 18; TEMP 97.2
[2024-01-03 20:21] LABS: GLUCOMETER DEV NAME(LOC) 3E.C; GLUCOSE,POINT OF CARE 223 MG/DL (70-110)
[2024-01-04 06:45] LABS: GLUCOMETER DEV NAME(LOC) 3E.C; GLUCOSE,POINT OF CARE 144 MG/DL (70-110)
[2024-01-04 08:51] VITALS: BP 146/88; PULSE 104; RESP 18; TEMP 96.8
[2024-01-04 11:16] LABS: GLUCOMETER DEV NAME(LOC) 3E.C; GLUCOSE,POINT OF CARE 258 MG/DL (70-110)
[2024-01-04 16:11] LABS: GLUCOMETER DEV NAME(LOC) 3E.C; GLUCOSE,POINT OF CARE 187 MG/DL (70-110)
[2024-01-04 20:03] VITALS: BP 13/59; PULSE 66; RESP 18; TEMP 97.3
[2024-01-04 20:50] LABS: GLUCOMETER DEV NAME(LOC) 3E.C; GLUCOSE,POINT OF CARE 188 MG/DL (70-110)
[2024-01-05 06:10] LABS: GLUCOMETER DEV NAME(LOC) 3E.C; GLUCOSE,POINT OF CARE 156 MG/DL (70-110)
[2024-01-05 08:32] VITALS: BP 159/91; PULSE 101; RESP 19; TEMP 97.4
[2024-01-05 09:20] LABS: GLUCOMETER DEV NAME(LOC) 3E.C; GLUCOSE,POINT OF CARE 176 MG/DL (70-110)
[2024-01-05 11:06] LABS: GLUCOMETER DEV NAME(LOC) 3E.C; GLUCOSE,POINT OF CARE 236 MG/DL (70-110)
[2024-01-05 16:25] LABS: GLUCOMETER DEV NAME(LOC) 3E.C; GLUCOSE,POINT OF CARE 218 MG/DL (70-110)
[2024-01-05 20:50] LABS: GLUCOMETER DEV NAME(LOC) 3E.C; GLUCOSE,POINT OF CARE 218 MG/DL (70-110)
[2024-01-05 20:51] VITALS: BP 156/62; PULSE 100; RESP 19; TEMP 98.4
[2024-01-05] MEDS: ZOLPIDEM TARTRATE 10 MG TABLET PO PRN (21:26)
[2024-01-06 06:00] LABS: GLUCOMETER DEV NAME(LOC) 3E.C; GLUCOSE,POINT OF CARE 213 MG/DL (70-110)
[2024-01-06 07:52] VITALS: BP 205/88; PULSE 105; RESP 18
[2024-01-06 08:20] VITALS: BP 179/85; PULSE 104
[2024-01-06 09:00] VITALS: BP 132/60; PULSE 96; RESP 18; TEMP 98.2
[2024-01-06 09:04] LABS: HEMOGLOBIN A1C 6.2 % (3.8-5.6)
[2024-01-06 09:08] LABS: ALBUMIN 3.5 g/dL (3.4-5.0); BILIRUBIN,TOTAL 0.2 mg/dL (0.1-1.0); CALCIUM, TOTAL 8.1 mg/dL (8.8-10.5); CREATININE 2.83 mg/dL (0.60-1.30); MAGNESIUM 1.6 mg/dL (1.80-2.40); POTASSIUM 3.9 mmol/L (3.5-5.1); TOTAL PROTEIN, SERUM 7.7 g/dL (6.4-8.2)
[2024-01-06 11:25] LABS: GLUCOMETER DEV NAME(LOC) 3E.C; GLUCOSE,POINT OF CARE 193 MG/DL (70-110)
[2024-01-06 17:26] LABS: GLUCOMETER DEV NAME(LOC) 3E.C; GLUCOSE,POINT OF CARE 157 MG/DL (70-110)
[2024-01-06 20:56] LABS: GLUCOMETER DEV NAME(LOC) 3E.C; GLUCOSE,POINT OF CARE 184 MG/DL (70-110)
[2024-01-06 21:00] VITALS: BP 136/70; PULSE 94; RESP 18; TEMP 98
[2024-01-07 05:36] LABS: GLUCOMETER DEV NAME(LOC) 3E.C; GLUCOSE,POINT OF CARE 186 MG/DL (70-110)
[2024-01-07 09:31] VITALS: BP 172/89; PULSE 104; RESP 17; TEMP 98.3
[2024-01-07 11:20] LABS: GLUCOMETER DEV NAME(LOC) 3E.C; GLUCOSE,POINT OF CARE 244 MG/DL (70-110)
[2024-01-07 16:40] LABS: GLUCOMETER DEV NAME(LOC) 3E.C; GLUCOSE,POINT OF CARE 185 MG/DL (70-110)
[2024-01-07 16:44] VITALS: BP 183/64; PULSE 101
[2024-01-07 20:40] LABS: GLUCOMETER DEV NAME(LOC) 3E.C; GLUCOSE,POINT OF CARE 355 MG/DL (70-110)
[2024-01-07 21:26] VITALS: BP 134/61; PULSE 85; RESP 18; TEMP 97.5
[2024-01-08] VITALS (9 sets, daily range): BP systolic 152–208; BP diastolic 67–90; PULSE 88–112; RESP 18; TEMP 97–98
[2024-01-08 05:50] LABS: GLUCOMETER DEV NAME(LOC) 3E.C; GLUCOSE,POINT OF CARE 142 MG/DL (70-110)
[2024-01-08 12:16] LABS: GLUCOMETER DEV NAME(LOC) 3E.C; GLUCOSE,POINT OF CARE 186 MG/DL (70-110)
[2024-01-08 17:31] LABS: GLUCOMETER DEV NAME(LOC) 3E.C; GLUCOSE,POINT OF CARE 207 MG/DL (70-110)
[2024-01-08 20:41] LABS: GLUCOMETER DEV NAME(LOC) 3E.C; GLUCOSE,POINT OF CARE 142 MG/DL (70-110)
[2024-01-08] MEDS: HydrALAZINE HCL 50 MG TABLET PO SCH (21:37)
[2024-01-09] MEDS: MAGNESIUM HYDROXIDE SUSPENSION 30 ML UDCUP PO PRN (01:58)
[2024-01-09 06:21] LABS: GLUCOMETER DEV NAME(LOC) 3E.C; GLUCOSE,POINT OF CARE 151 MG/DL (70-110)
[2024-01-09 07:15] VITALS: BP 184/83; PULSE 89; RESP 19; TEMP 98.1
[2024-01-09 08:21] VITALS: BP 178/88; PULSE 86; RESP 18; TEMP 97.6
[2024-01-09 09:43] VITALS: BP 164/77; PULSE 94; RESP 18; TEMP 97.6
[2024-01-09 11:46] LABS: GLUCOMETER DEV NAME(LOC) 3E.C; GLUCOSE,POINT OF CARE 174 MG/DL (70-110)
[2024-01-09] MEDS: HydrALAZINE HCL 50 MG TABLET PO SCH (12:12)
[2024-01-09] MEDS ORDERED: HYDR50TA36 PO (13:49)
== END 2024-01-09 16:15 | DRG 750 ==
LOC: 3EC 14:15
PROVIDERS: ADMIT Psychiatry & Neurology Psychiatry; ATTEND Psychiatry & Neurology Psychiatry
DX: F20.9 Schizophrenia, unspecified (principal); R45.851 Suicidal ideations; E11.22 Type 2 diabetes mellitus with diabetic chronic kidney disease; J44.9 Chronic obstructive pulmonary disease, unspecified; K21.9 Gastro-esophageal reflux disease without esophagitis; G47.00 Insomnia, unspecified; K59.00 Constipation, unspecified; I12.9 Hypertensive chronic kidney disease with stage 1 through stage 4 chronic kidney disease, or unspecified chronic kidney disease; N18.4 Chronic kidney disease, stage 4 (severe); Z79.4 Long term (current) use of insulin; Z88.5 Allergy status to narcotic agent; Z88.0 Allergy status to penicillin; Z91.041 Radiographic dye allergy status; Z72.0 Tobacco use; Z90.49 Acquired absence of other specified parts of digestive tract
CPT/HCPCS: 80053; 82962; 83036; 83735; 84100; 87081; J1815